=== PATIENT | male | born 1935 | race Caucasian/White ===

== ENCOUNTER → 2020-02-18 | Outpatient (CLI) | payer MEDICARE ==
--- NOTE | 2020-02-18 07:59 | RAD ---
AP upright supine abdomen x-rays HISTORY: Lower abdominal pain. History of colorectal cancer. COMPARISON: CT abdomen and pelvis April 27, 2010. FINDINGS: Lung bases unremarkable. No pneumoperitoneum. Cholecystectomy surgical clips. There is a moderate volume of stool throughout the large bowel. No dilated bowel loops or abnormal air-fluid levels to suggest small bowel obstruction. Thoracal lumbar bulky disc osteophytes are noted. IMPRESSION: Moderate volume of stool may indicate constipation. No small bowel obstruction. Electronically signed by: Lai Montemayor MD (02/18/2020 7:56 AM) [id number]
== END | disposition home or self-care (01) ==
LOC: DXRAD 07:13
PROVIDERS: ATTEND Family Medicine
DX: K59.00 Constipation, unspecified (principal); M25.78 Osteophyte, vertebrae
CPT/HCPCS: 74019